=== PATIENT | female | born 1985 | race African-American/Black ===

== ENCOUNTER 2024-01-05 21:29 | Emergency (ER) | payer MEDICAID ==
[~2024-01-05] VITALS: Ht 160 cm; Wt 100.0 kg
[2024-01-05 21:36] VITALS: BP 11/55; PULSE 68; RESP 17; TEMP 98.4
[2024-01-06] MEDS: PB/HYOSCY/ATR/SCOP/LIDO/MAALOX 55 ML BOTTLE PO ONE (00:58)
== END 2024-01-06 01:02 | disposition home or self-care (01) ==
LOC: EMS 21:49
DX: J02.8 Acute pharyngitis due to other specified organisms (principal); F12.90 Cannabis use, unspecified, uncomplicated; Z87.891 Personal history of nicotine dependence; Z98.890 Other specified postprocedural states
CPT/HCPCS: 99283